=== PATIENT | female | born 1990 | race Caucasian/White ===

== ENCOUNTER 2021-05-15 16:59 | Emergency (ER) | payer SELFPAY ==
[2021-05-15 17:30] VITALS: BP 123/82; PULSE 86; RESP 18; TEMP 36.9; O2SAT 99; BMI 24.1
--- NOTE | 2021-05-15 17:52 | HMH.EDUTC ---
[facility] Disposition Clinical Impression: Ingrown nail of third toe of left foot, Fungal infection of nail Disposition: Home, Self-Care Condition on Discharge: Good Instructions: Ingrown Toenail, Onychomycosis Additional Instructions: Follow up with Dr. Oleary. Use the medications as prescribed. GO TO THE ER FOR ANY WORSENING SYMPTOMS OR CONCERNS Prescriptions: cephALEXin [cephALEXin 500mg capsule] 500 mg PO Q6H 10 Days #40 cap Transmission Status: Received by [facility] Efinaconazole [Jublia] 1 applicatio TP DAILY 308 Days #4 ml Transmission Status: Received by [facility] Referrals: Provider,MD Lianne [Primary Care Provider] - Mine Oleary DPM [Staff Physician] - Time of Disposition: 18:44 Medical Decision Making - Medical Records Medical records reviewed: No: I reviewed the patient's medical records. - Sanchez Inquiry Pt receiving controlled substance: No Vital Signs: 05/15/21 17:30 05/15/21 18:48 Temperature 98.5 F 98.5 F Temperature Source Oral Pulse Rate 86 Pulse Rate [Left] 86 Respiratory Rate 18 18 Blood Pressure 123/82 Blood Pressure [Right Arm] 123/82 Blood Pressure Mean [Right Arm] 95 02 Sat by Pulse Oximetry 99 [facility] HPI - General Stated complaint: infected toe L foot Time Seen by Provider: 05/15/21 17:52 Mode of Arrival: Ambulatory Source of Information: Patient Limitations: No Limitations Description of Symptoms (Recalled from Triage Doc. by RN): pt c/o a L middle toe infection. the nail is thick and yellow. pt states this has been ongoing since last summer after getting a pedicure. HEENT Symptoms (Recalled from RN notes): No Resp Symptoms (Recalled from RN notes): No Skin Symptoms (Recalled from RN notes): Yes MS Symptoms (Recalled from RN notes): No Functional Status (Recalled from RN notes): wnl - History of Present Illness Provider Complaint: She states that she his having tenderness and redness of her left middle toe. The nail on that toe is also thickened. - Related Data Previous Rx's Medication Instructions Recorded Efinaconazole [Jublia] 1 applicatio TP DAILY 308 Days #4 05/15/21 ml cephALEXin [cephALEXin 500mg 500 mg PO Q6H 10 Days #40 cap 05/15/21 capsule] Allergies Allergy/AdvReac Type Severity Reaction Status Date / Time Penicillins Allergy Verified 05/15/21 17:36 - Worker's Comp Is this a Worker's Comp case?: No [facility] History - Hepatitis A Screen Drug use history?: No High risk sexual behaviors?: No History of sexually transmitted infection?: No Currently employed?: No Childcare worker?: No Do you have indoor plumbing?: Yes Do you have electricity?: Yes Attestation statement:: This patient has been screened for Hepatitis A risk factors. I have reviewed the patient's past medical history: Yes ROS Obtained: Yes All systems reviewed & no additional complaints - Constitutional Constitutional: Denies chills, Denies fever(s) - Musculoskeletal Musculoskeletal: Denies joint pain - Integumentary/Breasts Skin/Breast: Reports as per HPI Physical Exam - General General appearance: alert, in no apparent distress - Head Head exam: atraumatic, normocephalic, normal inspection - Eye Eye exam: Present: normal appearance, PERRL, EOMI - ENT ENT exam: Present: normal exam, normal oropharynx, mucous membranes moist, TM's normal bilaterally, normal external ear exam - Neck Neck exam: Present: normal inspection, full ROM, trachea midline. Absent: meningismus, lymphadenopathy - Chest Chest inspection: Present: normal inspection, symmetric chest wall rise. Absent: tenderness - Respiratory Respiratory exam: Present: normal lung sounds bilaterally. Absent: respiratory distress - Cardiovascular Cardiovascular exam: Present: regular rate, normal rhythm. Absent: JVD - Abdominal Exam Abdominal exam: Present: soft, normal bowel sounds. Absent: distention, tenderness, guarding - Extremiti
[2021-05-15 18:48] VITALS: BP 123/82; PULSE 86; RESP 18; TEMP 36.9
== END 2021-05-15 18:52 | disposition home or self-care (01) ==
PROVIDERS: Emergency Provider Nurse Practitioner Family
DX: L60.0 Ingrowing nail (principal); B35.1 Tinea unguium; Z88.0 Allergy status to penicillin
CPT/HCPCS: 99202; G0463

== ENCOUNTER 2022-02-25 11:09 | Emergency (ER) | payer OTHER, SELFPAY ==
[2022-02-25] VITALS (7 sets, daily range): BP systolic 108–131; BP diastolic 74–85; PULSE 70–78; RESP 16–18; TEMP 36.7; O2SAT 100; BMI 23.6
--- NOTE | 2022-02-25 11:28 | US_ITS ---
PROCEDURE INFORMATION: Exam: US , Transvaginal Exam date and time: 02/25/2022 11:56 AM Age: 31 years old Clinical indication: Lmp or gestational age (in weeks): 6w; Antepartum complications; Bleeding; ; Additional info: Vaginal bleeding TECHNIQUE: Imaging protocol: Real-time transvaginal obstetrical ultrasound of the maternal pelvis with image documentation. Transvaginal imaging was used for better evaluation of the fetus, adnexa, and/or cervix. COMPARISON: No relevant prior studies available. FINDINGS: Gestation: No intrauterine gestational sac identified. Correlation with serial quantitative beta hCG titers is recommended to differentiate between early , ectopic , and spontaneous . MATERNAL: Uterus: Uterus measures 8.7 by 4.0 x 4.7 cm. Endometrium measures 7 mm in diameter with trace fluid. Right ovary/adnexa: Right ovary measures 3.0 x 1.8 x 2.7 cm. Subcentimeter follicles. Right ovarian blood flow demonstrated. Left ovary/adnexa: Left ovary measures 4.1 x 1.5 x 1.8 cm. 1.5 cm left ovarian cyst. Left ovarian blood flow demonstrated. Other: No significant free fluid. IMPRESSION: No intrauterine gestational sac identified. Correlation with serial quantitative beta hCG titers is recommended to differentiate between early , ectopic , and spontaneous .
--- NOTE | 2022-02-25 11:30 | PC.NURSE ---
RADIOLOGY NOTIFIED OF TRANSVAGINAL US
--- NOTE | 2022-02-25 11:37 | PC.NURSE ---
LAB AT BEDSIDE
--- NOTE | 2022-02-25 11:47 | PC.NURSE ---
PT TO US AT THIS TIME
[2022-02-25 12:00] LABS: Basophils # 0.1 K/mm3 (0-0.2); Basophils % 1.3 % (0.1-2.0); Eosinophils # 0.1 K/mm3 (0.0-0.4); Eosinophils % 2.8 % (0.1-12.0); Hematocrit 39.4 % (37.0-47.0); Hemoglobin 13.3 g/dL (12.2-16.2); Lymphocytes % 19.5 % (10-50); Mean Corpuscular HGB Conc 33.7 g/dL (31.8-35.4); Mean Corpuscular Hemoglobin 31.5 pg (27.0-31.2); Mean Corpuscular Volume 93.4 fl (81-99); Mean Platelet Volume 8.5 fl (7.4-10.4); Monocytes # 0.3 K/mm3 (0.1-1.0); Neutrophils # 3.6 K/mm3 (1.8-7.8); Neutrophils % 71.3 % (37.0-80.0); Platelet Count 176 K/mm3 (142-424); Red Blood Count 4.22 M/mm3 (4.20-5.40); Red Cell Distribution Width 12.7 % (11.5-17.5)
--- NOTE | 2022-02-25 12:13 | PC.NURSE ---
PT RETURNED FROM XR
[2022-02-25 12:29] LABS: HCG,Quantitative 129 mIU/ml (0-5.42)
--- NOTE | 2022-02-25 12:55 | PC.NURSE ---
ED MD AT BEDSIDE TO DISCUSS POC WITH PT
--- NOTE | 2022-02-25 13:04 | HMH.EDGENADL ---
Discharge Plan Disposition Patient Disposition: Home, Self-Care Chief Complaint: Vaginal Bleeding Prescriptions Prescriptions: No Action cephalexin 500 MG capsule 500 mg PO Q6H 10 Days Qty: 40 0RF efinaconazole 4 ML solution with applicator 1 applicatio TP DAILY 308 Days Qty: 4 0RF Referrals Follow up/Referrals: Provider,Referral, [Primary Care Provider] - See instructions Clinical Impressions Clinical Impression: Complete Instructions Patient Instructions: DI for Vaginal Bleeding Discharge ED Provider: Geron[facility] HPI General Chief complaint: Vaginal Bleeding Stated complaint: 6 Weeks antepartum, bleeding Time Seen by Provider: 02/25/22 11:15 Mode of Arrival: Ambulatory Limitations: No Limitations Description of Symptoms (Recalled from ER Triage Doc. by RN): PT REPORT APPROX 6 WEEKS . STARTED SPOTTING YESTERDAY, HAEVIER VAGINAL BLEEDING AND CRAMPING TODAY History of Present Illness HPI narrative: Patient is a 31-year-old female with a past medical history of miscarriage who presents with concern for vaginal bleeding. She says that she thinks that she is 6 weeks for her last menstrual cycle. She says that yesterday she started spotting and cramping and then today she started passing more blood. Denies any clots. Denies any dizziness. Denies any shortness of breath. She locates the cramping pain in her pelvis. Denies any true abdominal pain in her left or right lower quadrant. Denies any fever or chills. Denies any chest pain. Related Data Previous Rx's Medication Instructions Recorded cephalexin 500 mg capsule 500 mg PO Q6H 10 days #40 caps 05/15/21 efinaconazole 10 % topical 1 applicatio TP DAILY 308 days #4 05/15/21 solution with applicator mL Allergies Allergy/AdvReac Type Severity Reaction Status Date / Time Penicillins Allergy Verified 05/15/21 17:36 PFSH PFSH Social History Smoking Status: Never smoker alcohol intake: never current occupational status: other Travel in the last 8 weeks: None ROS Obtained: Yes All systems reviewed & no additional complaints except as documented A 14 point review of system was obtained and otherwise negative except per HPI Physical Exam General General appearance: alert and in no apparent distress Head Head exam: atraumatic, normocephalic and normal inspection Eye Eye exam: Present normal appearance, PERRL and EOMI ENT ENT exam: Present normal exam, normal oropharynx, mucous membranes moist, TM's normal bilaterally and normal external ear exam Neck Neck exam: Present normal inspection, full ROM and trachea midline; Absent meningismus or lymphadenopathy Chest Chest inspection: Present normal inspection and symmetric chest wall rise; Absent tenderness Respiratory Respiratory exam: Present normal lung sounds bilaterally; Absent respiratory distress Cardiovascular Cardiovascular exam: Present regular rate and normal rhythm; Absent JVD Abdominal Exam Abdominal exam: Present soft, tenderness and normal bowel sounds; Absent distention or guarding Abdominal tenderness: Present suprapubic Extremities Exam Extremities exam: Present normal inspection, full ROM and normal capillary refill; Absent calf tenderness Back Exam Back exam: Present normal inspection; Absent tenderness Neurological Exam Neurological exam: Present alert and oriented X3 Psychiatric Psychiatric exam: Present normal affect and normal mood Skin Skin exam: Present warm, dry, intact and normal color Lymphatic Lymphatic Findings: no adenopathy Medical Decision Making Medical Records Medical records reviewed: Yes I reviewed the patient's medical records. Sanchez Inquiry Pt receiving controlled substance: No Vital Signs: 02/25/22 11:10 02/25/22 11:17 02/25/22 11:30 Temperature 98.1 F Temperature Source Oral Pulse Rate 78 77 Pulse Rate [Radial] 78 Respiratory Rate 17 18 18 Blood Pressure 131/85 1
[2022-02-25 13:06] LABS: Microscopic, Urine URINE MICROSCOPIC (MICROSCOPIC)
[2022-02-25 13:17] LABS: Appearance,Urine CLEAR (Clear); Bilirubin,Urine Negative (Negative); Blood, Urine 3+ (Negative); Color,Urine ORANGE (Yellow); Glucose,Urine (UA) Negative (Negative); Ketones,Urine Negative (Negative); Leukocyte Esterase,Urine TRACE (Negative); Nitrate,Urine Negative (Negative); PH,Urine 7.5 (5.0-8.5); Protein,Urine TRACE (Negative); Urobilinogen,Urine 0.2 EU/dl (0.2)
[2022-02-25 13:40] LABS: Bacteria,Urine Trace /lpf
== END 2022-02-25 13:30 | disposition home or self-care (01) ==
PROVIDERS: Emergency Provider Student in an Organized Health Care Education/Training Program
DX: O03.9 Complete or unspecified spontaneous abortion without complication (principal)
CPT/HCPCS: 36415; 76817; 81001; 84702; 85025; 86850; 99284